=== PATIENT | female | born 1940 | race Caucasian/White ===

== ENCOUNTER 2017-07-21 12:49 | Emergency (ER) | payer MEDICARE, MEDICAID ==
[~2017-07-21] VITALS: Ht 165.1 cm; Wt 63.6 kg
[~2017-07-21 12:49] MED LIST: ALPRAZOLAM0.5 MG PO; AMLODIPINE5 MG PO; AUGMENTIN500TAB PO; AUGMENTIN875TAB PO; BAYER CHEWABLE81 MG PO; BREO ELLIPTA1 INH PO; CARDIZEM60 MG PO; CEPHALEXIN500 MG OR; CETIRIZ/PSE1 TAB PO; CORDARONE200 MG PO; COREG6.25 MG OR; DUONEB IN; ENALAPRIL10 MG PO; ENALAPRIL5 MG PO; FLONASE NASAL50 MCG; FUROSEMIDE20 MG PO; GLYCERIN ADULT RE; GLYCERIN INFANTS1 GM PR; HYDROCHLOROT25 MG OR; IBUPROFEN800 MG PO; LASIX 20 MG TAB20 MG PO; LASIX 40 MG40 MG/TAB PO; LEVOTHYROXIN175 MCG PO; LEVOTHYROXIN50 MCG PO; LIPITOR10 MG PO; LOPRESSOR 550 MG/TAB PO; LORTAB 5 OR; MOTRIN800 MG PO; NASONEX50 MCG/AC; NEBULIZE4 IN; OXY1; PLAVIX75 MG PO; POTASSIUM99 MG PO; PRAVASTATIN20 MG PO; PROAIR HFA IN; SPIRONOLACTONE25 MG PO; TEMAZEPAM15 MG PO; TRAMADOL HCL50 MG PO; VENTOLIN HFA IN; ZYRTEC-D AL1 OR; ZYRTEC-D AL1 PO
[2017-07-21 13:13] LABS: URINE BILIRUBIN - DIPSTICK SMALL (NEGATIVE); URINE BLOOD DIPSTICK NEGATIVE (NEGATIVE); URINE CLARITY CLEAR; URINE COLOR YELLOW; URINE GLUCOSE - DIPSTICK NEGATIVE (NEGATIVE); URINE KETONE 15 mg/dL (NEGATIVE); URINE LEUK ESTERASE NEGATIVE (NEGATIVE); URINE NITRITE - DIPSTICK NEGATIVE (Negative); URINE PH 5.5 (4.5-8.0); URINE PROTEIN - DIPSTICK NEGATIVE (NEG-TRACE); URINE SPECIFIC GRAVITY 1.015; URINE UROBILINOGEN - DIPSTICK 0.2 E.U./dL (0.2)
[2017-07-21 13:14] LABS: IMMATURE GRANULOCYTES 1.8 % (0.0-1.0); MEAN CELL VOLUME 89.7 fL CALC (80.0-100.0); MEAN CORPUSCULAR HGB 30.7 pG CALC (26.0-32.0); MEAN CORPUSCULAR HGB CONC 34.2 g/L CALC (32.0-36.0); NEUT# 10.85 thou/uL (2.00-7.15); RED BLOOD COUNT 5.73 mill/uL (4.20-5.60)
[2017-07-21 13:24] LABS: HEMATOCRIT 51.4 % (37.0-47.0); HEMOGLOBIN 17.6 g/dl (12.0-16.0)
[2017-07-21 13:26] LABS: INFLUENZA A NONE DETECTED (NONE DETECT); INFLUENZA B NONE DETECTED (NONE DETECT)
[2017-07-21 13:29] LABS: ALBUMIN 4.7 g/dL (3.2-5.0); BILIRUBIN, TOTAL 0.8 mg/dL (0.0-1.4); MAGNESIUM 2.5 mg/dL (1.6-2.3); POTASSIUM 4.3 mmol/l (3.5-5.1); TOTAL PROTEIN 8.7 g/dL (6.3-8.2)
[2017-07-21 13:44] LABS: CREATININE 2.1 mg/dL (0.5-1.0)
[2017-07-21] MEDS ORDERED: DIGITEK0.25 M1 PO (13:51)
[2017-07-21] MEDS ORDERED: LASIX 40 MG TAB40 MG PO (13:52)
[2017-07-21] MEDS ORDERED: SPIRONOLACT25 MG PO (13:54)
[2017-07-21 14:19] LABS: TSH, 3RD GENERATION 3.23 uIU/mL (0.47 - 4.68)
[2017-07-21 15:00] VITALS: BP 98/48
== END 2017-07-21 15:05 | disposition short-term general hospital (02) ==
LOC: ED 12:49
PROVIDERS: Family Medicine
PROC: 0T9B70Z Drainage of Bladder with Drainage Device, Via Natural or Artificial Opening (ICD-10-PCS; principal; 2017-07-21)
DX: I21.09 ST elevation (STEMI) myocardial infarction involving other coronary artery of anterior wall (principal); R11.2 Nausea with vomiting, unspecified; R19.7 Diarrhea, unspecified; R00.1 Bradycardia, unspecified
CPT/HCPCS: J0282; J1162

== ENCOUNTER 2019-01-10 16:23 | Inpatient (IN) | payer MEDICARE, MEDICAID ==
[~2019-01-10] VITALS: Ht 165.1 cm; Wt 65.9 kg
[~2019-01-10 16:23] MED LIST changes: +DIGITEK0.25 M1 PO; +LASIX 40 MG TAB40 MG PO; +SPIRONOLACT25 MG PO
--- NOTE | 2019-01-10 16:35 | NUR ---
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;PT DENIES ANY CURRENT PAIN OR DISCOMFORTS,PAIN SCALE AND REPORTING EDUCATED;ASSESSMENT COMPLETED;RESPIRATIONS SHALLOW ON O2 @3L VIA NC, PT IS HOME DEPENDENT;CLEAR/DIMINISHED LUNG SOUNDS NOTED;ABDOMEN SOFT ON PALPATION AND ACTIVE IN ALL 4 QUADRANTS, LAST BM 01/10/19;WEAK PEDAL PULSES WITH +2 EDEMA NOTED,ENCOURAGED ELEVATION OF BLE;SKIN INTACT;TELE MONITORING PLACED ON PT;#22G STARTED TO RIGHT FOREARM ON 2ND ATTEMPT BY THIS WRITTER,PT TOLERATED WELL;PT DENIES ANY ADDITIONAL NEEDS AT THIS TIME AND IS ENCOURAGED TO CALL FOR ASSISTANCE IF NEEDED;FALL PRECAUTIONS IN PLACE WITH BED IN THE LOWEST POSITION AND CALL LIGHT IN REACH;WILL CONTINUE TO MONITOR
[2019-01-10 17:04] VITALS: BP 134/61
--- NOTE | 2019-01-10 17:15 | NUR ---
RT AT BEDSIDE OBTAING EKG AND ABG.
[2019-01-10] MEDS ORDERED: ALPRAZOLAM1 MG PO (17:17)
[2019-01-10] MEDS ORDERED: RESTORIL15 M1 PO (17:18)
--- NOTE | 2019-01-10 17:35 | NUR ---
LAB AT BEDSIDE AND UA SAMPLE OBTAINED.
--- NOTE | 2019-01-10 17:40 | NUR ---
AT BEDSIDE DISCUSSING POC.
[2019-01-10 18:05] LABS: HEMATOCRIT 33.5 % (37.0-47.0); HEMOGLOBIN 10.1 g/dl (12.0-16.0); IMMATURE GRANULOCYTES 0.4 % (0.0-5.0); MEAN CORPUSCULAR HGB 27.7 pG CALC (26.0-32.0); MEAN CORPUSCULAR HGB CONC 30.1 g/L CALC (32.0-36.0); NEUT# 8.08 thou/uL (2.00-7.15); RED BLOOD COUNT 3.64 mill/uL (4.20-5.60); RED CELL DISTRI WIDTH 15.5 % (11.5-15.5)
[2019-01-10 18:07] LABS: URINE BILIRUBIN - DIPSTICK NEGATIVE (NEGATIVE); URINE BLOOD DIPSTICK NEGATIVE (NEGATIVE); URINE COLOR YELLOW; URINE GLUCOSE - DIPSTICK NEGATIVE (NEGATIVE); URINE KETONE NEGATIVE (NEGATIVE); URINE LEUK ESTERASE NEGATIVE (Negative); URINE NITRITE - DIPSTICK NEGATIVE (Negative); URINE PROTEIN - DIPSTICK NEGATIVE (NEG-TRACE); URINE SPECIFIC GRAVITY <=1.005; URINE UROBILINOGEN - DIPSTICK 0.2 E.U./dL (0.2)
[2019-01-10 18:10] LABS: URINE CLARITY CLEAR
[2019-01-10 18:20] LABS: BUN 28 mg/dL (8-23); BUN/CREATININE RATIO 31 (12-20 (CALC)); CHLORIDE 98 mmol/l (95-108); CREATININE 0.9 mg/dL (0.5-1.0); GFR > 60 ML/MIN (>=60 (CALC)); GFR FOR AFR.AMER. > 60 ML/MIN (>=60 (CALC)); SODIUM 143 mmol/l (137-146)
--- NOTE | 2019-01-10 18:20 | NUR ---
PT TRANSPORTED TO [facility] IN STABLE CONDITION VIA WHEELCHAIR ACCOMPANIED BY PERFORMANCE MANAGER.
--- NOTE | 2019-01-10 18:23 | NUR ---
PT ARRIVED BACK TO FLOOR IN STABLE CONDITION ACCOMPANIED BY FISHER DIVING VIA WHEELCHAIR. RE-POSITIONED INTO BED FOR COMFORT.
[2019-01-10 18:25] LABS: ANION GAP 13 (6-22 (CALC)); CARBON DIOXIDE 35 mmol/l (22-30); POTASSIUM 3.1 mmol/l (3.5-5.1)
[2019-01-10 19:29] VITALS: BP 111/70
--- NOTE | 2019-01-10 20:00 | NUR ---
ASSESSMENT COMPLETED. IV SITE PATENT AND SL, FLUSHES WELL. SCHED MEDS GIVEN AND UPDATED ON POC. EXTENSION APPLIED TO O2 FOR BATHROOM USE. PT. VERY SOB ON EXERTION.INSTRUCTED TO CALL FOR ANY NEEDS. CALL LIGHT IS IN REACH. WILL CONTINUE TO MONITOR.
--- NOTE | 2019-01-10 20:39 | NUR ---
SPOKE WITH AND NOTIFIED HIM OF PT. QUESTIONING IN REGARDS TO LOPRESSOR AND CARDIZEM SHE IS TAKING AT HOME. PER MD WE WILL HOLD OFF ON CARDIZEM IT WILL WORSEN EDEMA AND LOPRESSOR ON HOLD HE IS SUBING WITH COREG AT THIS TIME. UPDATED PT. IN REGARDS TO THIS WELL.
--- NOTE | 2019-01-10 22:30 | NUR ---
PT. C/O BACK PAIN AND REPORTS SHE TAKES IBUPROFEN 800MG. CALLED MD AND REPORTED THIS TO HIM AND NEW ORDERS RECEIVED AND TO BE CARRIED OUT.
--- NOTE | 2019-01-10 23:45 | NUR ---
RESTING IN BED WITH NO DISTRESS NOTED; DENIES NEEDS/PAIN. ENCOURAGED TO CALL FOR ANY NEEDS. CALL LIGHT IS IN REACH.
[2019-01-11] VITALS (7 sets, daily range): BP systolic 79–103; BP diastolic 48–74
--- NOTE | 2019-01-11 02:02 | NUR ---
RESTING IN BED WITH EYES CLOSED; RESP. EVEN AND UNLABORED. CALL LIGHT IS IN REACH. WILL CONTINUE TO MONITOR.
--- NOTE | 2019-01-11 05:50 | NUR ---
RESTING IN BED WITH EXERTIONAL SOB. DENIES NEEDS. VOICES NO CONCERNS. MEASURING HAT EMPTIED. ENCOURAGED TO CALL FOR ANY NEEDS. CALL LIGHT IS IN REACH.
--- NOTE | 2019-01-11 05:52 | NUR ---
PROVIDED WITH INCENTIVE SPIROMETER AND EDUCATION GIVEN.
[2019-01-11 05:55] LABS: HEMATOCRIT 31.6 % (37.0-47.0); HEMOGLOBIN 9.4 g/dl (12.0-16.0); IMMATURE GRANULOCYTES 0.6 % (0.0-5.0); MEAN CELL VOLUME 92.9 fL CALC (80.0-100.0); MEAN CORPUSCULAR HGB 27.6 pG CALC (26.0-32.0); MEAN CORPUSCULAR HGB CONC 29.7 g/L CALC (32.0-36.0); NEUT# 5.62 thou/uL (2.00-7.15); RED BLOOD COUNT 3.4 mill/uL (4.20-5.60); RED CELL DISTRI WIDTH 15.4 % (11.5-15.5)
[2019-01-11 06:09] LABS: ALKALINE PHOSPHATASE 115 u/l (38-126); ANION GAP 12 (6-22 (CALC)); BILIRUBIN, TOTAL 0.5 mg/dL (0.0-1.4); BUN 24 mg/dL (8-23); BUN/CREATININE RATIO 25 (12-20 (CALC)); CALCULATED LDLCHOLESTEROL 100 mg/dL (62-129 (CALC)); CARBON DIOXIDE 34 mmol/l (22-30); CHLORIDE 98 mmol/l (95-108); CHOLESTEROL HDL RATIO 2.8 (<4.4 (CALC)); GFR 54 ML/MIN (>=60 (CALC)); GFR FOR AFR.AMER. > 60 ML/MIN (>=60 (CALC)); HDL CHOLESTEROL 64 mg/dL (>=40); POTASSIUM 3.7 mmol/l (3.5-5.1); SGOT/AST 19 u/l (9-36); SODIUM 141 mmol/l (137-146); TOTAL CHOLESTEROL 181 mg/dl (0-199); TOTAL PROTEIN 6.9 g/dL (6.3-8.2); TOTAL TRIGLYCERIDES 88 mg/dl (30-149); VLDL CHOLESTROL 18 mg/dl (0-48 (CALC))
[2019-01-11 06:19] LABS: ALBUMIN 3.5 g/dL (3.2-5.0)
[2019-01-11 06:35] LABS: TSH, 3RD GENERATION 6.04 uIU/mL (0.47 - 4.68)
--- NOTE | 2019-01-11 08:00 | NUR ---
PT SEEN AT REST IN THE CHAIR AT BEDSIDE. HR SEEN 120-130 RANGE, WHICH PT STATES IS NORMAL FOR HER AND THAT IT WILL COME DOWN ON ITS OWN. NO SHORTNESS OF BREATH OR CHEST PAIN R/T RAPID HR. PT WITH DIMINISHED LUNG SOUNDS, 4 LPM BY NC.
--- NOTE | 2019-01-11 12:00 | NUR ---
PT REMAINS BEFORE. DR HUGHES HAS SEEN PT, AWARE OF RAPID HR.
[2019-01-11] MEDS ORDERED: VENTOLIN HFA PO (12:40)
[2019-01-11] MEDS ORDERED: IPRATROPIU0.5 MG/3 M IN (12:43)
[2019-01-11] MEDS ORDERED: MOTRIN800 MG PO (12:44)
[2019-01-11] MEDS ORDERED: POT CHLORIDE10 ME1 PO (13:38)
[2019-01-11] MEDS ORDERED: BREO ELLIPTA1 INH IN (13:41)
[2019-01-11] MEDS ORDERED: DILTIAZEM240 MG PO (13:45)
--- NOTE | 2019-01-11 18:15 | NUR ---
PT SEEN ENJOYING COMPANY FOR MOST OF THE AFTERNOON. NO COMPLAINTS OF SHORTNESS OF BREATH OR OTHERWISE.
--- NOTE | 2019-01-11 19:05 | NUR ---
REPORT FROM YUSEF CROCKETT. PT SITTING UP IN CHAIR AT BEDSIDE. NO APPARENT DISTRESS NOTED. PT DENIES ANY PAIN OR DISCOMFORT. 02 @ 4L/M VIA NC. STRIPPING CUTTER AND WINDER IN PLACE. IV SITE APPEARS HEALTHY. DISCUSSED POC. PT VERBALIZED UNDERSTANDING. CALL LIGHT WITHIN REACH. WILL CONTINUE TO MONITOR.
--- NOTE | 2019-01-11 23:50 | NUR ---
PLACED PHONE CALL TO PHYSICIAN REGARDING PT BP. NO ANSWER MESSAGE LEFT ON MACHINE. PT PLACED IN TRANDELENBURG POSITION WITH EFFECT. PT TOLERATING WELL. WILL CONTINUE TO MONITOR.
[2019-01-12] VITALS (10 sets, daily range): BP systolic 81–114; BP diastolic 42–72
--- NOTE | 2019-01-12 03:10 | NUR ---
PT CURRENT BP 78/50. NOTIFIED PHYSICIAN VIA TELEPHONE AT THIS TIME. NEW IV FLUID ORDERS RECEIVED. WILL CONTINUE TO MONITOR.
[2019-01-12 04:57] LABS: IMMATURE GRANULOCYTES 0.5 % (0.0-5.0); MEAN CELL VOLUME 93.8 fL CALC (80.0-100.0); MEAN CORPUSCULAR HGB 28.1 pG CALC (26.0-32.0); NEUT# 5.12 thou/uL (2.00-7.15); RED BLOOD COUNT 3.2 mill/uL (4.20-5.60); RED CELL DISTRI WIDTH 15.3 % (11.5-15.5)
[2019-01-12 05:28] LABS: CREATININE 1.2 mg/dL (0.5-1.0); POTASSIUM 3.8 mmol/l (3.5-5.1)
--- NOTE | 2019-01-12 08:59 | NUR ---
ASSESSMENT DONE. PT IS SITTING IN RECLINER. O2 AT 4L VIA NC. TELE IN PLACE. DR. HUGHES IN ROOM. NOTIFIED RE: PT BP 101/57. SAFETY PRECAUTIONS REINFORCED AND CALL LIGHT IN REACH.
--- NOTE | 2019-01-12 12:00 | NUR ---
PT IS SITTING IN RECLINER EATING HER LUNCH WITH NO S/S OF DISTRESS NOTED. PT DENIES NEEDS AT THIS TIME. CALL LIGHT IN REACH.
--- NOTE | 2019-01-12 16:27 | NUR ---
CALLED DR. OVIEDO Re: PER PT SHE WANTS LASIX TO BE SCHEDULED AT A DIFFERENT TIME. NOTIFIED RE: PT BP 90/42. ORDER RECEIVED.
--- NOTE | 2019-01-12 19:00 | NUR ---
RECIEVED REPORT FROM DAY NURSE. NO NEEDS AT THIS TIME. CALL HURT IN REACH WILL CONTINUE TO MONITOR.
--- NOTE | 2019-01-12 22:00 | NUR ---
PT WATCHING TV. ASSESMENT COMPLETED AT THIS TIME. MEDICATED PER ORDER. PAIN 8/10 AT THIZS TIME. O2 @ 4L. IV INFUSING WELL. NO NEEDS AT THIS TIME CALL HURT IN REACH. WILL CONTINUE TO MONITOR.
[2019-01-13] VITALS (7 sets, daily range): BP systolic 93–115; BP diastolic 50–66
--- NOTE | 2019-01-13 | NUR ---
PT RESTING IN BED WITH EYES CLOSED. NO S/S OF DISTRESS. CALL HURT IN REACH. WILL CONTINUE MONITOR.
--- NOTE | 2019-01-13 04:00 | NUR ---
PT RESTING IN BED. NO S/S OF DISTRESS. WILL CONTINUE TO MONITOR.
--- NOTE | 2019-01-13 08:23 | NUR ---
PT IS SITTING IN RECLINER. ASSESSMENT DONE. MEDICATED PT WITH MOTRIN FOR PAIN 12/05. PT IS A&O X3. TELE IN PLACE. O2 AT 4L VIA NC. I.S ENCOURAGE PT VERBALIZED UNDERSTANING. CALL LIGHT IN REACH.
--- NOTE | 2019-01-13 12:00 | NUR ---
PT IS SITTING IN RECLINER. VISITING WITH DAUGHTER IN ROOM. NO S/S OF DISTRESS NOTED. PT DENIES NEEDS AT THIS TIME. CALL LIGHT IN REACH.
--- NOTE | 2019-01-13 15:00 | NUR ---
PT IS SITTING IN RECLINER WITH NO S/S OF DISTRESSS NOTED. PT DENIES NEEDS AT THIS TIME. CALL LIGHT IN REACH.
--- NOTE | 2019-01-14 | NUR ---
PT RESTING IN BED WITH EYES CLOSED. NO S/S OF DISTRESS. O2 @ 4L. WILL CONTINUE TO MONITOR.
--- NOTE | 2019-01-14 04:00 | NUR ---
PT RESTING IN BED, EYES CLOSED, O2 @ 4L. NO S/S OF DISTRESS NOTED. CALL HURT IN REACH. WILL CONTINUE TO MONITOR.
[2019-01-14 04:06] VITALS: BP 100/46
[2019-01-14 04:51] LABS: HEMATOCRIT 31.3 % (37.0-47.0); IMMATURE GRANULOCYTES 0.4 % (0.0-5.0); MEAN CELL VOLUME 96.6 fL CALC (80.0-100.0); MEAN CORPUSCULAR HGB 27.8 pG CALC (26.0-32.0); MEAN CORPUSCULAR HGB CONC 28.8 g/L CALC (32.0-36.0); NEUT# 5.98 thou/uL (2.00-7.15); RED BLOOD COUNT 3.24 mill/uL (4.20-5.60); RED CELL DISTRI WIDTH 15.4 % (11.5-15.5)
[2019-01-14 06:25] LABS: ALBUMIN 3.2 g/dL (3.2-5.0); BILIRUBIN, TOTAL 0.3 mg/dL (0.0-1.4); CHOLESTEROL HDL RATIO 2.7 (<4.4 (CALC)); CREATININE 1.1 mg/dL (0.5-1.0); POTASSIUM 4.3 mmol/l (3.5-5.1); TOTAL PROTEIN 6.4 g/dL (6.3-8.2)
--- NOTE | 2019-01-14 06:45 | NUR ---
RECIEVED REPORT FROM RAYO MUHAMMAD. ASSUMED PT CARE.
[2019-01-14 08:00] VITALS: BP 97/50
--- NOTE | 2019-01-14 08:00 | NUR ---
PT WALKING IN ROOM, A&OX 3, ABLE TO MAKE NEEDS KNOWN. ASSESSMENT COMPLETED, MANUAL B/P CONFIRMED. PT ASYMPTOMATIC. TRACE EDEMA REMAINS IN BILAT ANKLES. SA02@93% ON 4LPM VIA NC. CALL LIGHT IN REACH. WILL MONITOR.
--- NOTE | 2019-01-14 08:30 | NUR ---
DR. HUGHES AT BEDSIDE FOR ASSESSMENT AND TO DISCUSS PLAN OF CARE, LISINOPRIL TO BED HELD PER DR. HUGHES. NEW ORDERS RECIEVED. WILL MONITOR.
[2019-01-14 11:00] VITALS: BP 110/60
--- NOTE | 2019-01-14 12:00 | NUR ---
PT RESTING IN RECLINER, OFFER NO COMPLAINTS AT THIS TIME. REMAINS AFIB, HR 96 PER ED TELEMETRY. CALL LIGHT IN REACH, WILL MONITOR.
[2019-01-14 15:00] VITALS: BP 110/72
--- NOTE | 2019-01-14 16:13 | NUR ---
PT RESTING IN RECLINER, RESPIRATIONS EVEN/UNLABORED. O2@4LPM VIA NC CONTINUES. CALL LIGHT IN REACH. WILL MONITOR.
[2019-01-14 19:45] VITALS: BP 112/72
--- NOTE | 2019-01-14 19:45 | NUR ---
PT RESTING IN BED, NO SIGNS OF DISTRESS NOTED, RESP EVEN AND UNLABORED. 02 4L NC HUMIDIFIED, PT HOME DEPENDENT. DISCUSSED POC, VERBALIZED UNDERSTANDING. IV SITE FLUSHED WELL. ALERT AND ORIENTED X3. ASSESSMENT COMPLETED, CALL LIGHT IN REACH,CONTINUE TO MONITOR.
--- NOTE | 2019-01-14 23:00 | NUR ---
RT CALLED TO BEDSIDE PT REQUESTING NEB TX,CALL LIGHT IN REACH,CONTINUE TO MONITOR.
[2019-01-15] VITALS (7 sets, daily range): BP systolic 88–106; BP diastolic 48–62
--- NOTE | 2019-01-15 01:00 | NUR ---
PT MEDICATED WITH IBUPROFEN, STATES SHE FEELS MORE RELAXED, SATS 100% 02 NC. PT WAS SATTING 90% AND STATES SHE COULD NOT CATCH HER BREATH. CALL LIGHT IN REACH,CONTINUE TO MONITOR.
--- NOTE | 2019-01-15 08:44 | NUR ---
DR. HUGHES IN TO SEE PT; PLAN OF CARE DISCUSSED.
--- NOTE | 2019-01-15 10:11 | NUR ---
DR. HUGHES NOTIFIED OF GFR 48, CREATININE 1.1, CT THORAX CHANGED TO WITHOUT CONTRAST.
--- NOTE | 2019-01-15 10:35 | NUR ---
REPORT RECEIVED FROM WAYNE PT ALERT AND ORIENTED LEAVING UNIT AT THIS TO PROCEDURE, WILL CONTINUE TO MONITOR UPON RETURN.
--- NOTE | 2019-01-15 11:00 | NUR ---
PT TO RADIOLOGY VIA WC ACCOMPANIED BY STAFF;
--- NOTE | 2019-01-15 11:20 | NUR ---
PT RETURNED FROM RADIOLOGY VIA WC ACCOMPANIED STAFF; AMBULATORY TO CHAIR WITH STAND BY ASSIST; NO COMPLAINTS OR CONCERNS VOICED; CALL HURT WITHIN REACH; WILL CONTINUE TO MONITOR.
--- NOTE | 2019-01-15 11:35 | NUR ---
TRANSPORTED BACK TO UNIT VIA W/C BY STAFF AND SETTLED IN CHAIR, FAMILY MEMBER VISITING, ANXIOUS TO GO HOME BUT INFORMED WILL CONTACT MD FOR FURTHER ORDERS, WILL CONTINUE TO MONITOR.
--- NOTE | 2019-01-15 12:38 | NUR ---
DR. HUGHES NOTIFIED OF CT THORAX RESULTS; ORDERS TO HAVE PT STAY ONE MORE NIGHT POSSIBLE D/C IN THE AM AND FOR PICC LINE; PLAN OF CARE DISCUSSED WITH PT.
--- NOTE | 2019-01-15 16:29 | NUR ---
RESTING IN BED AT THIS TIME, REPORTS FELIEF FROM HEADACHE, ENCOURAGED TO REST SOME MORE. DR HUGHES ROUNDED AND GAVE ORDERS.
--- NOTE | 2019-01-15 19:45 | NUR ---
ASSESSMENT COMPLETED. IV SITE DUE TO BE CHANGED REMOVED AT THIS TIME WITH CATHETER TIP INTACT AND NEW IV STARTED TO LFA X1 ATTEMPT; PT. TOLERATED WELL. UPDATED ON POC. OFFERED PRUNE JUICE DUE TO NO BM TODAY AND PT. DECLINES. O2 INFUSING PER NC PER ORDER. ENCOURAGED TO CALL FOR ANY NEEDS. CALL LIGHT IS IN REACH. WILL CONTINUE TO MONITOR.
--- NOTE | 2019-01-15 21:19 | NUR ---
DENIES NEEDS/PAIN. SCHED MEDS GIVEN. ENCOURAGED TO CALL FOR ANY NEEDS. CALL LIGHT IS IN REACH.
--- NOTE | 2019-01-15 23:05 | NUR ---
MANUAL B/P 88/48. NOTIFIED DR. HUGHES AND NEW ORDERS OBTAINED AND TO BE CARRIED OUT. UPDATED PT. WITH POC.
[2019-01-16] VITALS (9 sets, daily range): BP systolic 90–131; BP diastolic 42–85
--- NOTE | 2019-01-16 01:00 | NUR ---
MANUAL B/P REASSESSED MANUALLY /58; WILL CONTINUE TO MONITOR.
--- NOTE | 2019-01-16 03:59 | NUR ---
PERFECT BINDER FEEDER OFFBEARER IN AT BEDSIDE OBTAINING VS. TEMP 99.9, WILL CONTINUE TO MONITOR. DENIES NEEDS AND VOICES NO CONCERNS.
--- NOTE | 2019-01-16 05:27 | NUR ---
SCHED MED GIVEN AND PO FLUIDS OFFERED. TEMP REASSESSED AND NOW IS 99.4. ENCOURAGED TO USE INCENTIVE SPIROMETER, BUT PT. REPORTS SHE WILL DO THAT AFTER BREAKFAST. CALL LIGHT IS IN REACH. WILL CONTINUE TO MONITOR.
--- NOTE | 2019-01-16 06:51 | NUR ---
PT. REPORTS SOB AND GENERALIZED PAIN AND MEDICATED WITH ORDERED PRN MOTRIN ALONG WITH AM LASIX. B/P 131/73. ENCOURAGED DEEP BREATHING. CALL LIGHT IS IN REACH.
--- NOTE | 2019-01-16 08:10 | NUR ---
PT IS SITTING IN RECLINER. DR. HUGHES AT BEDSIDE TO DISCUSS POC. ASSESSMENT DONE. TELE IN PLACE. O2 AT 4L VIA NC. PT DENIES PAIN AT THIS TIME. PT IS A&O X3. CALL LIGHT IN REACH.
--- NOTE | 2019-01-16 12:03 | NUR ---
PT IS SITTING IN RECLINER EATING HER LUNCH WITH NO S/S OF DISTRESS NOTED. CALL LIGHT IN REACH.
--- NOTE | 2019-01-16 15:51 | NUR ---
PT IS SITTING IN RECLINER READING. PO FLUIDS PROVIDED. PT DENIES ANY OTHER NEEDS AT THIS TIME. CALL LIGHT IN REACH.
--- NOTE | 2019-01-16 19:00 | NUR ---
REPORT FROM DANG CROCKETT. PT SITTING UP AT BEDSIDE WITH VISITOR IN ROOM. NO DISTRESS NOTED. O2 @ 4L/M VIA NC. PT DENIES ANY PAIN OR DISCOMFORT. IV SITE APPEARS HEALTHY. BOILER TESTING TECHNICIAN IN PLACE. DISCUSSED POC. PT VERBALIZED UNDERSTANDING. CALL LIGHT WITHIN REACH. WILL CONTINUE TO MONITOR.
--- NOTE | 2019-01-16 23:44 | NUR ---
PT RESTING IN BED WITH EYES CLOSED. NO DISTRESS NOTED. CALL LIGHT WITHIN REACH. WILL CONTINUE TO MONITOR.
[2019-01-17 04:43] VITALS: BP 139/77
--- NOTE | 2019-01-17 04:49 | NUR ---
PT AWAKE REQUESTING MORNING MEDICATIONS AND BREATHING TREATMENT. RT NOTIFIED AT THIS TIME. CALL LIGHT WITHIN REACH. WILL CONTINUE TO MONITOR.
[2019-01-17 06:07] LABS: HEMATOCRIT 33.1 % (37.0-47.0); HEMOGLOBIN 9.7 g/dl (12.0-16.0); IMMATURE GRANULOCYTES 0.6 % (0.0-5.0); MEAN CELL VOLUME 94.6 fL CALC (80.0-100.0); MEAN CORPUSCULAR HGB 27.7 pG CALC (26.0-32.0); MEAN CORPUSCULAR HGB CONC 29.3 g/L CALC (32.0-36.0); NEUT# 5.17 thou/uL (2.00-7.15); RED BLOOD COUNT 3.5 mill/uL (4.20-5.60); RED CELL DISTRI WIDTH 15.1 % (11.5-15.5)
[2019-01-17 06:30] LABS: ANION GAP 7 (6-22 (CALC)); BUN 24 mg/dL (8-23); BUN/CREATININE RATIO 28 (12-20 (CALC)); CARBON DIOXIDE 38 mmol/l (22-30); CHLORIDE 100 mmol/l (95-108); CREATININE 0.8 mg/dL (0.5-1.0); GFR > 60 ML/MIN (>=60 (CALC)); GFR FOR AFR.AMER. > 60 ML/MIN (>=60 (CALC)); POTASSIUM 4.5 mmol/l (3.5-5.1); SODIUM 140 mmol/l (137-146)
[2019-01-17 08:06] VITALS: BP 146/81
--- NOTE | 2019-01-17 08:07 | NUR ---
PT IS SITTING IN RECLINER. DR. HUGHES IN ROOM TO ASESS PT AND DISCUSS POC. PT STATED SOB O2 IS 92%. O2 AT 4L VIA NC. ASSESSMENT DONE. PT IS A&O X3. SAFETY PRECAUTIONS REINFORCED AND CALL LIGHT IN REACH.
--- NOTE | 2019-01-17 10:18 | NUR ---
NEB TX FOLLOWED BY CPT VIA PERCUSSOR.
--- NOTE | 2019-01-17 12:00 | NUR ---
PT IS SITTING IN RECLINER EATING HER LUNCH. PT DENIES ANY NEEDS AT THIS TIME,. TELE IN PLACE. CALL LIGHT IN REACH.
[2019-01-17 15:07] VITALS: BP 122/77
--- NOTE | 2019-01-17 19:01 | NUR ---
REPORT FROM DANG CROCKETT. PT SITTING UP AT BEDSIDE. ASSISTED PT BACK TO BED UPON REQUEST. NO DISTRESS NOTED. O2 @ 4L/M VIA NC. PT DENIES ANY PAIN OR DISCOMFORT. IV SITE APPEARS HEALTHY. CARBURIZER IN PLACE. DISCUSSED POC. PT VERBALIZED UNDERSTANDING. CALL LIGHT WITHIN REACH. WILL CONTINUE TO MONITOR.
[2019-01-17 19:20] VITALS: BP 132/68
[2019-01-17 23:05] VITALS: BP 120/71
--- NOTE | 2019-01-17 23:56 | NUR ---
PT RESTING IN BED WITH EYES CLOSED. WAKES EASILY TO VERBAL STIMULI. NO DISTRESS NOTED. CALL LIGHT WITHIN REACH. WILL CONTINUE TO MONITOR.
[2019-01-18 03:35] VITALS: BP 146/83
--- NOTE | 2019-01-18 03:55 | NUR ---
PT C/O SOB. O2 SAT 89% RT NOTIFIED AT THIS TIME.
[2019-01-18 05:46] LABS: HEMOGLOBIN 9.9 g/dl (12.0-16.0); IMMATURE GRANULOCYTES 0.5 % (0.0-5.0); MEAN CELL VOLUME 95.1 fL CALC (80.0-100.0); MEAN CORPUSCULAR HGB 28.5 pG CALC (26.0-32.0); NEUT# 5.75 thou/uL (2.00-7.15); RED BLOOD COUNT 3.47 mill/uL (4.20-5.60); RED CELL DISTRI WIDTH 14.9 % (11.5-15.5)
[2019-01-18 06:08] LABS: PROTHROMBIN TIME 10.4 SECONDS (9.0-12.5)
[2019-01-18 06:11] LABS: ANION GAP 9 (6-22 (CALC)); BUN 21 mg/dL (8-23); BUN/CREATININE RATIO 27 (12-20 (CALC)); CHLORIDE 97 mmol/l (95-108); CREATININE 0.8 mg/dL (0.5-1.0); GFR > 60 ML/MIN (>=60 (CALC)); GFR FOR AFR.AMER. > 60 ML/MIN (>=60 (CALC)); SODIUM 141 mmol/l (137-146)
[2019-01-18 06:31] LABS: CARBON DIOXIDE 40 mmol/l (22-30)
[2019-01-18 08:00] VITALS: BP 145/89
[2019-01-18 11:46] VITALS: BP 155/92
--- NOTE | 2019-01-18 12:00 | NUR ---
PT HAS GONE FOR PICC LINE PLACEMENT. PT WENT BY WHEELCHAIR WITH 6 LPM NC. PT OTHERWISE REMAINS BEFORE, RESTS IN THE CHAIR IN NO ACUTE DISTRESS.
--- NOTE | 2019-01-18 12:41 | NUR ---
PT SEEN AT REST IN THE CHAIR AT BEDSIDE TODAY, NO DISTRESS. PT IS DYSPNEIC UPON EXERTION, HAS 4 LPM NC ON EXTENDED TUBING IN ROOM TO ALLOW FOR BATHROOM VISITS. PT WAITS FOR PICC INSERTION FOR EXTENDED ANTIBIOTIC THERAPY.
[2019-01-18 15:55] VITALS: BP 143/71
--- NOTE | 2019-01-18 17:13 | NUR ---
PT REMAINS BEFORE, NO COMPLAINTS, NO DISTRESS.
[2019-01-18 19:37] VITALS: BP 127/69
--- NOTE | 2019-01-18 20:12 | NUR ---
ASSESSMENT COMPLETED. IV SITE REMOVED TO LFA AND CATHETER TIP INTACT, PT. NOW HAS MIDLINE TO CESIA; CIRCUMFERENCE OF INSERTION SITE TO MIDLINE IS 27.5 CM. UPDATED ON POC. O2 INFUSING PER NC PER ORDER. ENCOURAGED TO CALL FOR ANY NEEDS. CALL LIGHT IS IN REACH.
--- NOTE | 2019-01-18 22:16 | NUR ---
PT. RESTING IN BED WITH EYES CLOSED; NO DISTRESS NOTED. ZITHROMAX HUNG PER ORDER. WILL CONTINUE TO MONITOR.
--- NOTE | 2019-01-18 23:38 | NUR ---
PT. ASSISTED BACK TO BED FROM [facility]. PT. IS VERY SOB ON EXERTION. O2 INFUSING; SPO2 91-92% ON 4.5LITERS/MIN PER NC. VS OBTAINED. PT. C/O GENERALIZES PAIN 03/07 AND MEDICATED WITH ORDERED MOTRIN; WILL REASSESS. DENIES FURTHER NEEDS. CALL LIGHT IS IN REACH.
[2019-01-18 23:41] VITALS: BP 125/55
--- NOTE | 2019-01-19 02:34 | NUR ---
PT. RESTING IN BED ON LEFT SIDE WATCHING TV, NO DISTRESS NOTED; DENIES NEEDS/PAIN. CALL LIGHT IS IN REACH.
[2019-01-19 04:30] VITALS: BP 106/61
[2019-01-19 05:21] LABS: HEMATOCRIT 32.3 % (37.0-47.0); HEMOGLOBIN 9.4 g/dl (12.0-16.0); IMMATURE GRANULOCYTES 0.4 % (0.0-5.0); MEAN CELL VOLUME 95.6 fL CALC (80.0-100.0); MEAN CORPUSCULAR HGB 27.8 pG CALC (26.0-32.0); MEAN CORPUSCULAR HGB CONC 29.1 g/L CALC (32.0-36.0); NEUT# 4.88 thou/uL (2.00-7.15); RED BLOOD COUNT 3.38 mill/uL (4.20-5.60); RED CELL DISTRI WIDTH 14.8 % (11.5-15.5)
[2019-01-19 05:45] LABS: BUN 20 mg/dL (8-23); BUN/CREATININE RATIO 24 (12-20 (CALC)); CHLORIDE 95 mmol/l (95-108); CREATININE 0.9 mg/dL (0.5-1.0); GFR > 60 ML/MIN (>=60 (CALC)); GFR FOR AFR.AMER. > 60 ML/MIN (>=60 (CALC)); POTASSIUM 4.7 mmol/l (3.5-5.1); SODIUM 140 mmol/l (137-146)
[2019-01-19 05:47] LABS: ANION GAP 11 (6-22 (CALC)); CARBON DIOXIDE 39 mmol/l (22-30)
--- NOTE | 2019-01-19 07:40 | NUR ---
PT SITTING IN CHAIR AT BEDSIDE, ALERT AND ORIENTED X3, DISCUSSED POC, PT VERBALIZED UNDERSTANDING ASKING WHAT TIME SHE WILL BE DISCHARGED. MD TO DISCUSS WHEN HE ARRIVES. PT 02 DEPENDENT NC @ 4L HUMIDIFIED. ASSESSMENT COMPLETED, CALL LIGHT IN REACH,CONTINUE TO MONITOR.
[2019-01-19 07:44] VITALS: BP 128/76
[2019-01-19] MEDS ORDERED: ROCEPHIN 1 GM1 GM IV (09:00)
[2019-01-19] MEDS ORDERED: AZITHROMYCIN500 MG PO (09:01)
--- NOTE | 2019-01-19 09:32 | NUR ---
PT SITTING IN CHAIR AT BEDSIDE, DISCUSSED ROCEPHIN, INITATED IV INFUSION. VOICES NO NEEDS OR COMPLAINTS AT THIS TIME. DISCUSSED ONCE 2ND IV ANTIBIOTIC COMPLETED PT MAY BE DISCHARGED. CALL LIGHT IN REACH,CONTINUE TO MONITOR.
[2019-01-19 11:00] VITALS: BP 107/62
--- NOTE | 2019-01-19 11:39 | NUR ---
SON AT BEDSIDE, IV INFUSION INITATED. VOICES NO NEEDS OR COMPLAINTS AT THIS TIME. CALL LIGHT IN REACH,CONTINUE TO MONITOR.
--- NOTE | 2019-01-19 14:18 | NUR ---
Discharge instructions given. Patient verbalizes understanding of same. Discharged in Stable condition via Wheelchair to Home with family. All belongings sent with pt.
== END 2019-01-19 14:18 | disposition home health service (06) | DRG 291 ==
LOC: MS2 16:23
PROVIDERS: ADMIT Internal Medicine Geriatric Medicine; ATTEND Internal Medicine Geriatric Medicine
PROC: 05H733Z Insertion of Infusion Device into Right Axillary Vein, Percutaneous Approach (ICD-10-PCS; principal; 2019-01-18)
PROC: B51MZZA Fluoroscopy of Right Upper Extremity Veins, Guidance (ICD-10-PCS; 2019-01-18)
DX: I11.0 Hypertensive heart disease with heart failure (principal); J18.9 Pneumonia, unspecified organism; I25.810 Atherosclerosis of coronary artery bypass graft(s) without angina pectoris; J44.0 Chronic obstructive pulmonary disease with (acute) lower respiratory infection; I50.9 Heart failure, unspecified; I50.84 End stage heart failure; D64.9 Anemia, unspecified; I48.2 Chronic atrial fibrillation; I25.10 Atherosclerotic heart disease of native coronary artery without angina pectoris; E78.5 Hyperlipidemia, unspecified; E03.9 Hypothyroidism, unspecified; M19.90 Unspecified osteoarthritis, unspecified site; K80.20 Calculus of gallbladder without cholecystitis without obstruction; E11.9 Type 2 diabetes mellitus without complications; I25.2 Old myocardial infarction; R62.7 Adult failure to thrive; Z95.5 Presence of coronary angioplasty implant and graft; Z99.81 Dependence on supplemental oxygen; Z91.14 Patient's other noncompliance with medication regimen; Z79.02 Long term (current) use of antithrombotics/antiplatelets; Z79.82 Long term (current) use of aspirin; Z68.23 Body mass index [BMI] 23.0-23.9, adult

== ENCOUNTER 2020-08-15 16:01 | Emergency (ER) | payer MEDICARE, MEDICAID ==
[~2020-08-15] VITALS: Ht 165.1 cm; Wt 61.4 kg
[~2020-08-15 16:01] MED LIST changes: +ALPRAZOLAM1 MG PO; +AZITHROMYCIN500 MG PO; +BREO ELLIPTA1 INH IN; +DILTIAZEM240 MG PO; +IPRATROPIU0.5 MG/3 M IN; +POT CHLORIDE10 ME1 PO; +RESTORIL15 M1 PO; +ROCEPHIN 1 GM1 GM IV; +VENTOLIN HFA PO
[2020-08-15 16:33] LABS: IMMATURE GRANULOCYTES 0.9 % (0.0-5.0); MEAN CORPUSCULAR HGB 18.2 pG CALC (26.0-32.0); MEAN CORPUSCULAR HGB CONC 26.2 g/dL CAL (32.0-36.0); NEUT# 13.25 thou/uL (2.00-7.15); RED BLOOD COUNT 2.74 mill/uL (4.20-5.60); RED CELL DISTRI WIDTH 19.6 % (11.5-15.5)
[2020-08-15 16:35] LABS: HEMATOCRIT 19.1 % (37.0-47.0); MEAN CELL VOLUME 69.7 fL CALC (80.0-100.0)
[2020-08-15 16:48] LABS: ALBUMIN 4.4 g/dL (3.2-5.0); BILIRUBIN, TOTAL 0.6 mg/dL (0.0-1.4); CREATININE 1.1 mg/dL (0.5-1.0); POTASSIUM 4.7 mmol/l (3.5-5.1); TOTAL PROTEIN 8.3 g/dL (6.3-8.2)
[2020-08-15 16:50] LABS: ACT PARTIAL THROMBO TIME 27.6 SECONDS (20.0-32.5); INTERNATIONAL NORMALIZED RATIO 1.2 RATIO (0.7-1.3); MAGNESIUM 2.3 mg/dL (1.6-2.3); PROTHROMBIN TIME 11.7 SECONDS (9.0-12.5)
--- NOTE | 2020-08-15 17:16 | NUR ---
PT PLACED ON BIPAP PER MD REQUEST FOR INCREASD WOB. ABG DRAWN ON 5LPM NC, C PO2 SIGNIFICANTLY LOW, WELL MEASURED HG. PT STATES IMMEDIATE RELIEF UPON BIPAP IMPLEMENTATION. AWARE. NAD. GIULIANO WELL. VSS. POCKETED SPRING MACHINE OPERATOR TO MONITOR.
[2020-08-15 17:46] VITALS: BP 161/55
[2020-08-15 18:04] VITALS: BP 176/69
[2020-08-15 18:55] VITALS: BP 181/81
[2020-08-15 20:10] VITALS: BP 139/64
[2020-08-15 21:00] VITALS: BP 176/69
== END 2020-08-15 21:25 | disposition short-term general hospital (02) ==
LOC: ED 16:01
PROC: 5A09357 Assistance with Respiratory Ventilation, Less than 24 Consecutive Hours, Continuous Positive Airway Pressure (ICD-10-PCS; principal; 2020-08-15)
PROC: 30233N1 Transfusion of Nonautologous Red Blood Cells into Peripheral Vein, Percutaneous Approach (ICD-10-PCS; 2020-08-15)
DX: A41.9 Sepsis, unspecified organism (principal); R65.20 Severe sepsis without septic shock; J96.02 Acute respiratory failure with hypercapnia; J96.01 Acute respiratory failure with hypoxia; J18.9 Pneumonia, unspecified organism; J44.1 Chronic obstructive pulmonary disease with (acute) exacerbation; J44.0 Chronic obstructive pulmonary disease with (acute) lower respiratory infection; K92.2 Gastrointestinal hemorrhage, unspecified; D64.9 Anemia, unspecified; R94.31 Abnormal electrocardiogram [ECG] [EKG]; E87.1 Hypo-osmolality and hyponatremia; E03.9 Hypothyroidism, unspecified; Z95.5 Presence of coronary angioplasty implant and graft; Z20.822 Contact with and (suspected) exposure to COVID-19
CPT/HCPCS: J2060; P9016